=== PATIENT | male | born 1990 | race Caucasian/White ===

== ENCOUNTER 2024-07-17 10:22 | Emergency (ER) | payer MEDICAID, OTHER ==
[~2024-07-17] VITALS: Ht 188 cm; Wt 95.5 kg
[~2024-07-17 10:22] MED LIST: ESCI-8 PO; QUET25TA PO; QUET50TA24 PO
[2024-07-17 10:27] VITALS: TEMP 99
[2024-07-17 10:40] VITALS: BP 124/78; PULSE 79; RESP 17; O2SAT 98
[2024-07-17] MEDS: MUPIROCIN CALCIUM 2% 22 GM OINTMENT NASAL ONE (11:16)
== END 2024-07-17 11:22 | disposition home or self-care (01) ==
LOC: EMS 10:23
DX: Z22.322 Carrier or suspected carrier of Methicillin resistant Staphylococcus aureus (principal); F32.A Depression, unspecified; Z79.899 Other long term (current) drug therapy
CPT/HCPCS: 99283